=== PATIENT | female | born 1995 | race Caucasian/White ===

== ENCOUNTER 2017-02-13 23:50 | Emergency (ER) | payer OTHER ==
[2017-02-13 23:59] VITALS: BP 119/68; PULSE 76; RESP 16; TEMP 98.1; O2SAT 98
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
[2017-02-14] MEDS ORDERED: HYDROCODONE/APAP 5/325 TAB PO ONE (00:40)
[2017-02-14] MEDS ORDERED: SKIN ADHESIVE (DERMABOND) 1 EACH TP ONE (00:57)
== END 2017-02-14 01:57 | disposition home or self-care (01) ==
DX: S02.5XXA Fracture of tooth (traumatic), initial encounter for closed fracture (principal); V19.9XXA Pedal cyclist (driver) (passenger) injured in unspecified traffic accident, initial encounter; Y92.410 Unspecified street and highway as the place of occurrence of the external cause; Y99.8 Other external cause status; Y93.55 Activity, bike riding